=== PATIENT | female | born 1995 | race Caucasian/White ===

== ENCOUNTER 2024-05-09 19:35 | Emergency (ER) | payer OTHER ==
[2024-05-09 19:43] VITALS: BP 119/74; PULSE 90; RESP 18; TEMP 97.3; BMI 22.0
[2024-05-09 20:14] LABS: EPI CELLS >36 /uL (0-25.1); HYALINE CASTS 2 /uL (0-3.1); PH,URINE 6.5 (5.0-8.0); URINE APPEARANCE CLOUDY; URINE BACTERIA 878 /uL (0-1359); URINE BILIRUBIN NEGATIVE (NEGATIVE); URINE COLOR YELLOW; URINE GLUCOSE (UA) NEGATIVE (NEGATIVE); URINE KETONE 1+ (NEGATIVE); URINE LEUK ESTERASE 2+ (NEGATIVE); URINE NITRITE NEGATIVE (NEGATIVE); URINE PROTEIN NEGATIVE (NEGATIVE); URINE RBC 31 /uL (0-23.9); URINE WBC 92 /uL (0-25.8)
[2024-05-09] MEDS ORDERED: ONDANSETRON 4 MG/2 ML VIAL ONE (20:23)
[2024-05-09] MEDS ORDERED: FAMOTIDINE 10 MG/ML VIAL IVPB ONE (20:24)
[2024-05-09 20:44] LABS: BASO % 0.3 % (0-2.0); EOS % 0.4 % (0-4.5); HEMATOCRIT 33.7 % (32.4-45.2); HEMOGLOBIN 11.6 GM/dL (10.7-15.3); LYMPH % 17.5 % (8-40); MCHC 34.3 g/dl (32.0-36.0); MEAN CELL VOLUME 84.6 fl (80-96); MEAN PLT VOLUME 7.3 fl (7.5-11.1); MONO % 4.8 % (3.8-10.2); PLATELET COUNT 287 10^3/uL (134-434); RBC 3.98 M/mm3 (3.60-5.2); RDW 14.4 % (11.6-15.6); WHITE BLOOD COUNT 13.2 K/mm3 (4.0-10.0)
[2024-05-09] MEDS: ONDANSETRON 4 MG/2 ML VIAL IVPUSH ONE (20:58)
[2024-05-09] MEDS: FAMOTIDINE 20 MG TABLET PO ONE (20:58)
[2024-05-09 21:11] LABS: CALCIUM 8.7 mg/dL (8.5-10.1)
[2024-05-09 21:12] LABS: ALBUMIN 3.5 g/dl (3.4-5.0); BLOOD UREA NITROGEN 8.3 mg/dL (7-18); MAGNESIUM 1.9 mg/dL (1.8-2.4)
[2024-05-09 21:15] LABS: CREATININE 0.4 mg/dL (0.55-1.3)
[2024-05-09 21:16] LABS: BILIRUBIN,TOTAL 0.3 mg/dL (0.2-1); TOT PROT 6.8 g/dl (6.4-8.2)
[2024-05-09] MEDS ORDERED: NITROFURANTOIN MACROCRYSTAL 50 MG CAPSULE (FP) ONE (21:24)
[2024-05-09] MEDS: NITROFURANTOIN MONOHYD/M-CRYST 100 MG CAPSULE PO ONE (21:26)
[2024-05-09] MEDS ORDERED: POTASSIUM CHLORIDE TABS 20 MEQ TABLET.ER (FP) PO ONE (22:37)
[2024-05-09] MEDS: POTASSIUM CHLORIDE TABS 20 MEQ TABLET.ER (FP) PO ONE (22:44)
== END 2024-05-10 00:09 | disposition home or self-care (01) ==
LOC: JER 19:35
PROC: 3E033GC Introduction of Other Therapeutic Substance into Peripheral Vein, Percutaneous Approach (ICD-10-PCS; principal; 2024-05-09)
DX: O23.42 Unspecified infection of urinary tract in pregnancy, second trimester (principal); O26.892 Other specified pregnancy related conditions, second trimester; R10.11 Right upper quadrant pain; O21.9 Vomiting of pregnancy, unspecified; Z3A.14 14 weeks gestation of pregnancy
CPT/HCPCS: 36415; 76705-TC; 80053; 81003; 83690; 83735; 85025; 87086; 99284-25

== ENCOUNTER 2024-06-08 22:49 | Inpatient (IN) | payer OTHER ==
[2024-06-08 22:51] VITALS: BMI 25.4
[2024-06-09] MEDS ORDERED: ONDANSETRON 4 MG/2 ML VIAL ONE (00:01)
[2024-06-09] MEDS ORDERED: ACETAMINOPHEN INJECTION 100 ML ONE ×2 (00:01→11:25)
[2024-06-09 00:03] LABS: URINE APPEARANCE TURBID; URINE BILIRUBIN NEGATIVE (NEGATIVE); URINE COLOR YELLOW; URINE GLUCOSE (UA) NEGATIVE (NEGATIVE); URINE KETONE 1+ (NEGATIVE); URINE LEUK ESTERASE NEGATIVE (NEGATIVE); URINE NITRITE NEGATIVE (NEGATIVE); URINE PROTEIN NEGATIVE (NEGATIVE)
[2024-06-09 00:05] LABS: BASO % 0.3 % (0-2.0); EOS % 0.1 % (0-4.5); HEMATOCRIT 33.7 % (32.4-45.2); HEMOGLOBIN 11.4 GM/dL (10.7-15.3); LYMPH % 10.8 % (8-40); MCH 29.3 pg (25.7-33.7); MCHC 33.9 g/dl (32.0-36.0); MEAN CELL VOLUME 86.4 fl (80-96); MEAN PLT VOLUME 7.3 fl (7.5-11.1); MONO % 3.8 % (3.8-10.2); PLATELET COUNT 282 10^3/uL (134-434); RDW 14.2 % (11.6-15.6); WHITE BLOOD COUNT 12.9 K/mm3 (4.0-10.0)
[2024-06-09] MEDS: SODIUM CHLORIDE 0.9% 500 ML INFUS.BAG IV ONE ×2 (00:06→03:01)
[2024-06-09] MEDS: ONDANSETRON 4 MG/2 ML VIAL IVPUSH ONE (00:07)
[2024-06-09] MEDS: ACETAMINOPHEN 1000 MG/100 ML BAG IVPB ONE ×3 (00:07→11:39)
[2024-06-09 00:16] LABS: INR 0.96 (0.83-1.09); PROTHROMBIN TIME (PATIENT) 10.9 SEC (9.7-13.0)
[2024-06-09 00:18] LABS: ACTIVATED PTT 29.8 SECONDS (25.2-36.5)
[2024-06-09 00:29] LABS: POTASSIUM 3.3 mmol/L (3.5-5.1)
[2024-06-09 00:31] LABS: CALCIUM 8.8 mg/dL (8.5-10.1)
[2024-06-09 00:33] LABS: ALBUMIN 3.4 g/dl (3.4-5.0)
[2024-06-09 00:35] LABS: CREATININE 0.5 mg/dL (0.55-1.3)
[2024-06-09 00:36] LABS: BILIRUBIN,TOTAL 0.4 mg/dL (0.2-1); TOT PROT 6.9 g/dl (6.4-8.2)
[2024-06-09] MEDS ORDERED: POTASSIUM CHLORIDE ORAL LIQUID 20 MEQ/15 ML ONE (01:15)
[2024-06-09] MEDS: POTASSIUM CHLORIDE ORAL LIQUID 20 MEQ/15 ML PO ONE ×2 (01:18→06:36)
[2024-06-09] MEDS ORDERED: METOCLOPRAMIDE HCL INJECTION 10 MG/2 ML VIAL ONE (03:02)
[2024-06-09] MEDS: METOCLOPRAMIDE HCL INJECTION 10 MG/2 ML VIAL IVPUSH ONE (03:11)
[2024-06-09] MEDS: PYRIDOXINE HCL (B-6) 100 MG TABLET PO ONE (04:15)
[2024-06-09] MEDS: PYRIDOXINE HCL (B-6) 50 MG TABLET (FP) PO PRN (04:16)
[2024-06-09 05:53] VITALS: RESP 17; TEMP 97.8
[2024-06-09] MEDS ORDERED: MORPHINE SULFATE 2 MG/ML SYRINGE ONE (06:46)
[2024-06-09] MEDS: morphine CARPU-JECT 2 MG/1 ML DISP.SYRIN IVPUSH ONE (06:51)
[2024-06-09] MEDS: MORPHINE SULFATE 2 MG/ML SYRINGE IVPUSH ONE (06:57)
[2024-06-09 07:37] LABS: HEMATOCRIT 29.2 % (32.4-45.2); MCH 29.8 pg (25.7-33.7); MCHC 34.4 g/dl (32.0-36.0); MEAN CELL VOLUME 86.6 fl (80-96); MEAN PLT VOLUME 7.1 fl (7.5-11.1); PLATELET COUNT 255 10^3/uL (134-434); RBC 3.37 M/mm3 (3.60-5.2); WHITE BLOOD COUNT 15.6 K/mm3 (4.0-10.0)
[2024-06-09 07:57] LABS: POTASSIUM 3.5 mmol/L (3.5-5.1)
[2024-06-09 08:02] LABS: ALBUMIN 2.8 g/dl (3.4-5.0); BLOOD UREA NITROGEN 5.2 mg/dL (7-18); CALCIUM 7.9 mg/dL (8.5-10.1)
[2024-06-09 08:04] LABS: MAGNESIUM 1.6 mg/dL (1.8-2.4)
[2024-06-09 08:05] LABS: CREATININE 0.3 mg/dL (0.55-1.3); PHOSPHOROUS 3.5 mg/dL (2.5-4.9)
[2024-06-09 08:06] LABS: BILIRUBIN,TOTAL 0.5 mg/dL (0.2-1); TOT PROT 5.7 g/dl (6.4-8.2)
[2024-06-09] MEDS: MAGNESIUM SULFATE IN WATER 2 GM/50 ML IVPB IVPB ONE (09:19)
[2024-06-09] MEDS ORDERED: SODIUM CHLORIDE 0.9% 500 ML INFUS.BAG IV ONE (10:47)
[2024-06-09] MEDS: SODIUM CHLORIDE 1,000 ML IV ONE (11:39)
[2024-06-09 17:46] VITALS: BP 107/59; PULSE 89
== END 2024-06-09 18:02 | disposition short-term general hospital (02) | DRG 566 ==
LOC: JER 22:49 → JERBED 06-09 02:25 → OBSVTOIN 06-09 06:07
PROVIDERS: ADMIT Student in an Organized Health Care Education/Training Program; ATTEND Internal Medicine
DX: O26.612 Liver and biliary tract disorders in pregnancy, second trimester (principal); K80.50 Calculus of bile duct without cholangitis or cholecystitis without obstruction; K83.9 Disease of biliary tract, unspecified; Z3A.20 20 weeks gestation of pregnancy
CPT/HCPCS: 36415; 76705-TC; 80053; 81003; 83690; 83735; 84100; 85025; 85027; 85610; 85730; 86850; 86900; 86901; 87086; 87635; 99285-25; G0378; J0131